=== PATIENT | female | born 1990 | race Caucasian/White ===

== ENCOUNTER 2016-12-22 10:14 | Outpatient (CLI) | payer MEDICAID | END 2016-12-22 13:35 | disposition home or self-care (01) | LOC: MW.OBCHECK 10:14 → MW.OB 10:17 → MW.OBCHECK 13:35 | PROVIDERS: ATTEND Obstetrics & Gynecology | DX: O47.1 False labor at or after 37 completed weeks of gestation (principal) | CPT/HCPCS: 59025; 81003 ==

== ENCOUNTER 2017-05-14 07:03 | Emergency (ER) | payer MEDICAID ==
[2017-05-14 07:28] VITALS: BP 127/79
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
== END 2017-05-14 07:56 | disposition home or self-care (01) ==
LOC: MW.ED 07:03
DX: M79.641 Pain in right hand (principal); R20.9 Unspecified disturbances of skin sensation; F41.9 Anxiety disorder, unspecified; F17.210 Nicotine dependence, cigarettes, uncomplicated; F32.9 Major depressive disorder, single episode, unspecified; Z90.49 Acquired absence of other specified parts of digestive tract; Z98.890 Other specified postprocedural states; Z88.0 Allergy status to penicillin
CPT/HCPCS: 99282

== ENCOUNTER 2017-05-31 20:00 | Emergency (ER) | payer MEDICAID ==
[2017-05-31] MEDS ORDERED: Diphtheria,Pertussis(Acell),Tetanus Vaccine 0.5 ML Syringe IM ONE (20:11)
[2017-05-31] MEDS ORDERED: LORazepam 1 MG Tab PO ONE (20:11)
[2017-05-31] MEDS ORDERED: Bacitracin Oint 1 GM U/D Packet TOP ONE (20:15)
[2017-05-31] MEDS ORDERED: Lidocaine 1% 20 ML MDV INJECT ONE (20:15)
--- NOTE | 2017-05-31 20:20 | EDM.PDOCBH ---
ED HPI GENERAL MEDICAL PROBLEM - General Chief Complaint: Behavioral/Psych Stated Complaint: BEHAVIORAL ISSUES Time Seen by Provider: 05/31/17 20:12 Source of Information: Reports: Patient, RN - History of Present Illness INITIAL COMMENTS - FREE TEXT/NARRATIVE: She lost her anti depressants about three weeks ago. Now , tonight she cut her wrist with a box knife. She states that she is not sure if she was trying to kill herself. Although she did tell the nurse that she wanted to kill herself. 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; she admits to marijuana use but none within the past 24 hours; no other illegal drug use Right Wrist Pain Score (Numeric/FACES): 3 - Related Data Allergies Allergy/AdvReac Type Severity Reaction Status Date / Time Penicillins Allergy Anaphylactic Verified 05/31/17 20:01 Shock Home Meds: Home Meds Citalopram [Celexa] 30 mg PO BEDTIME 05/14/17 [History] LORazepam PRN 05/14/17 [History] Methylphenidate HCl [Methylphenidate ER] 1 tab PO DAILY 05/14/17 [History] Multivitamins [Tab-A-Heather] 1 tab PO DAILY 05/14/17 [History] Past Medical History Psychiatric History: Reports: Anxiety, Depression - Infectious Disease History Infectious Disease History: Reports: Chicken Pox, Influenza - Past Surgical History HEENT Surgical History: Reports: Adenoidectomy, Tonsillectomy GI Surgical History: Reports: Appendectomy Social & Family History - Tobacco Use Smoking Status *Q: Current Every Day Smoker Years of Tobacco use: 13 Packs/Tins Daily: 1 Used Tobacco, but Quit: Yes Month Tobacco Last Used: february Second Hand Smoke Exposure: No - Caffeine Use Caffeine Use: Reports: Coffee Other Caffeine Use: 1 cup daily - Alcohol Use Days Per Week of Alcohol Use: 3 Number of Drinks Per Day: 3 Total Drinks Per Week: 9 - Recreational Drug Use Recreational Drug Use: No Drug Use in Last 12 Months: Yes Recreational Drug Type: Reports: Marijuana/Hashish Recreational Drug Use Frequency: Not Used In Over 6 Months Recreational Drug Last Use: april ED ROS GENERAL - Review of Systems Review Of Systems: See Below Constitutional: Denies: Fever, Chills Respiratory: Denies: Shortness of Breath, Cough, Sputum, Hemoptysis Cardiovascular: Denies: Chest Pain GI/Abdominal: Denies: Abdominal Pain ED EXAM, BEHAVIORAL HEALTH - Physical Exam Exam: See Below General Appearance: Alert, Other (crying; cooperative; appears depressed. She denies any hallucinations.) Throat/Mouth: Normal Lips Neck: Supple, Other (no thyromegaly) Respiratory/Chest: No Respiratory Distress, Lungs Clear, Normal Breath Sounds Cardiovascular: Regular Rate, Rhythm, No Edema GI/Abdominal: Non-Tender Neurological: Alert. No: Disoriented to Person, Disoriented to Place, Inattentive, Dysarthria, Facial Palsy (R), Facial Palsy (L) Psychiatric: Depressed Mood, Tearful. No: Agitated COURSE, BEHAVIORAL HEALTH COMP - Course Vital Signs: Last Vital Signs Temp 97.8 F 05/31/17 20:01 Pulse 109 H 05/31/17 20:01 Resp 16 05/31/17 20:01 BP 98/58 L 05/31/17 20:01 Pulse Ox 98 05/31/17 20:01 Orders, Labs, Meds: Active Orders 24 hr Category Date Time Status EKG Documentation Completion [RC] STAT Care 05/31/17 20:33 Active Vaccines to be Administered [RC] PER UNIT ROUTINE Care 05/31/17 20:11 Active COMPREHENSIVE METABOLIC PN,CMP [CHEM] Stat Lab 05/31/17 20:41 Received DRUG SCREEN, URINE [URCHEM] Stat Lab 05/31/17 20:31 Uncollected HCG QUALITATIVE,SERUM [CHEM] Stat Lab 05/31/17 20:41 Received MAGNESIUM [CHEM] Stat Lab 05/31/17 20:41 Received TSH [CHEM] Stat Lab 05/31/17 20:41 Received UA W/MICROSCOPIC [URIN] Stat Lab 05/31/17 20:31 Uncollected Laboratory Tests 05/31/17 Range/Units 20:41 WBC 12.08 H (4.0-11.0) K/uL RBC 4.39 (4.30-5.90) M/uL Hgb 13.2 (12.0-16.0) g/dL Hct 38.9 (36.0-46.0) % MCV 88.6 (80.0-98.0) fL MCH 30.1 (27.0-32.0) pg MCHC 33.9 (31.0-37.0) g/dL RDW Std Deviation 43.4 (28.0-62.0) fl RDW Coeff of Xochilt 13 (11.0-15.0) % Plt Count 329 (150-400) K/uL MPV 8.50 (7.40-12.00) fL Neut % (Auto) 66.7 (48.0-80.0) % Lymph % (Auto) 27.6 (16.0-40.0) % [place] % (Auto) 3.6 (0.0-15.0) % Eos % (Auto) 1.7 (0.0-7.0) % Baso % (Auto) 0.4 (0.0-1.5) % Neut # (Auto) 8.0 H (1.4-5.7) K/uL Lymph # (Auto) 3.3 H (0.6-2.4) K/uL [place] # (Auto) 0.4 (0.0-0.8) K/uL Eos # (Auto) 0.2 (0.0-0.7) K/uL Baso # (Auto) 0.1 (0.0-0.1) K/uL Nucleated RBC % 0.0 /100WBC Nucleated RBCs # 0 K/uL Medications Discontinued Medications Generic Name Dose Route Start Last Admin Trade Name Freq PRN Reason Stop Dose Admin Bacitracin 1 dose 05/31/17 20:15 05/31/17 20:57 Bacitracin Oint 1 Gm TOP 05/31/17 20:16 1 dose ONETIME ONE Administration Diphtheria/Tetanus/Acell Pertussis 0.5 ml 05/31/17 20:11 05/31/17 20:57 Adacel IM 05/31/17 20:12 0.5 ml .ONCE ONE Administration Lidocaine HCl 20 ml 05/31/17 20:15 05/31/17 20:57 Xylocaine 1% INJECT 05/31/17 20:16 20 ml ONETIME ONE Administration Lorazepam 1 mg 05/31/17 20:11 05/31/17 20:58 Ativan PO 05/31/17 20:12 1 mg ONETIME ONE Administration Departure - Departure Time of Disposition: 20:56 Disposition: DC/Tfer to Acute Hospital 02 Condition: Fair Clinical Impression: Laceration, Suicidal ideation, Depression - Discharge Information Referrals: PCP,None [Primary Care Provider] - Forms: ED Department Discharge Additional Instructions: I spoke with Dr Elina Mejía and with Dr Pereyra, psychiatry, [facility] accept [facility] transfer. - My Orders Last 24 Hours: My Active Orders 05/31/17 20:11 Vaccines to be Administered [RC] PER UNIT ROUTINE 05/31/17 20:31 DRUG SCREEN, URINE [URCHEM] Stat UA W/MICROSCOPIC [URIN] Stat 05/31/17 20:33 EKG Documentation Completion [RC] STAT 05/31/17 20:41 COMPREHENSIVE METABOLIC PN,CMP [CHEM] Stat HCG QUALITATIVE,SERUM [CHEM] Stat MAGNESIUM [CHEM] Stat TSH [CHEM] Stat - Assessment/Plan Last 24 Hours: My Active Orders 05/31/17 20:11 Vaccines to be Administered [RC] PER UNIT ROUTINE 05/31/17 20:31 DRUG SCREEN, URINE [URCHEM] Stat UA W/MICROSCOPIC [URIN] Stat 05/31/17 20:33 EKG Documentation Completion [RC] STAT 05/31/17 20:41 COMPREHENSIVE METABOLIC PN,CMP [CHEM] Stat HCG QUALITATIVE,SERUM [CHEM] Stat MAGNESIUM [CHEM] Stat TSH [CHEM] Stat
[2017-05-31] MEDS ORDERED: LORazepam 1 MG Tab ONE (20:59)
[2017-05-31 21:08] LABS: CHLORIDE,CL 108 mmol/L (98-110); SODIUM,NA 145 mmol/L (136-146)
[2017-05-31 22:49] VITALS: BP 134/62
== END 2017-05-31 22:13 ==
LOC: MW.ED 20:00
DX: S61.511A Laceration without foreign body of right wrist, initial encounter (principal); F32.9 Major depressive disorder, single episode, unspecified; F17.210 Nicotine dependence, cigarettes, uncomplicated; Z23 Encounter for immunization; Z88.0 Allergy status to penicillin; Z98.890 Other specified postprocedural states; Z90.49 Acquired absence of other specified parts of digestive tract; X78.8XXA Intentional self-harm by other sharp object, initial encounter
CPT/HCPCS: 12001; 36415; 80053; 80305; 81001; 83735; 84443; 84703; 85025; 90471; 90715; 93005; 99285; A9270; 99282

== ENCOUNTER 2017-07-25 08:13 | Day surgery (SDC) | payer MEDICAID ==
[~2017-07-25 08:13] MED LIST: Acetaminophen/HYDROcodone 325-5 MG Tab PO PRN; Bupivacaine 0.25% 10 ML SDV INJECT ONE; Bupivacaine 0.25% 10 ML SDV ONE; Clindamycin Phosphate in D5W 600 MG in Premix Bag 1 BAG IV ONE; Lactated Ringers 1,000 ML IV SCH; Lidocaine 2% 5 ML SDV ONE; Midazolam 1 MG/ML 2 ML SDV ONE; Propofol 200 MG/20 ML SDV ONE; fentaNYL 100 MCG/2 ML SDV ONE
--- NOTE | 2017-07-25 08:31 | PCM.PREANE ---
Preanesthetic Assessment - Anesthesia/Transfusion/Family Hx Anesthesia History: Prior Anesthesia Without Reaction Other Type of Anesthesia Reaction Comment: "I wake up weepy" Family History of Anesthesia Reaction: No Transfusion History: No Prior Transfusion(s) Intubation History: Unknown - Review of Systems General: No Symptoms Pulmonary: No Symptoms Gastrointestinal: No Symptoms Neurological: No Symptoms Other: Reports: None - Physical Assessment Height: 1.68 m Weight: 48.988 kg ASA Class: 2 Mental Status: Alert & Oriented x3 Airway Class: Mallampati = 1 Dentition: Reports: Normal Dentition Thyro-Mental Finger Breadths: 3 Mouth Opening Finger Breadths: 3 ROM/Head Extension: Full Lungs: Clear to Auscultation, Normal Respiratory Effort Cardiovascular: Regular Rate, Regular Rhythm - Allergies Allergies/Adverse Reactions: Allergies Allergy/AdvReac Type Severity Reaction Status Date / Time Penicillins Allergy Anaphylactic Verified 05/31/17 20:01 Shock - Blood Blood Available: No - Anesthesia Plan Pre-Op Medication Ordered: None - Acknowledgements Anesthesia Type Planned: MAC Pt an Appropriate Candidate for the Planned Anesthesia: Yes Alternatives and Risks of Anesthesia Discussed w Pt/Guardian: Yes Pt/Guardian Understands and Agrees with Anesthesia Plan: Yes PreAnesthesia Questionnaire HEENT History: Reports: Impaired Vision Other HEENT History: wears glasses Cardiovascular History: Reports: None Respiratory History: Reports: None Gastrointestinal History: Reports: Helicobacter Pylori Genitourinary History: Reports: None 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: Musculoskeletal History: Reports: Fracture Other Musculoskeletal History: fx ankle, fx nose Neurological History: Reports: Concussion Psychiatric History: Reports: Anxiety, Depression Endocrine/Metabolic History: Reports: None Dermatologic History: Reports: None - Infectious Disease History Infectious Disease History: Reports: Chicken Pox, Influenza - Past Surgical History Head Surgeries/Procedures: Reports: None HEENT Surgical History: Reports: Adenoidectomy, Oral Surgery, Tonsillectomy, Other (See Below) Other HEENT Surgeries/Procedures: rhinoplasty, wisdom teeth extraction, nasal reduction Cardiovascular Surgical History: Reports: None GI Surgical History: Reports: Appendectomy Female Surgical History: Reports: Other (See Below) Other Female Surgeries/Procedures: liposuction Musculoskeletal Surgical History: Reports: Carpal Tunnel - SUBSTANCE USE Smoking Status *Q: Current Some Day Smoker (< 1ppd) Tobacco Use Within Last Twelve Months: Cigarettes Second Hand Smoke Exposure: No Days Per Week of Alcohol Use: 3 Number of Drinks Per Day: 3 Total Drinks Per Week: 9 Recreational Drug Use History: Yes Recreational Drug Type: Reports: Marijuana/Hashish Recreational Drug Last Use: jul, - HOME MEDS Home Medications: Home Meds ARIPiprazole [Abilify] 5 mg PO DAILY 07/20/17 [History] Multivitamin [Multivitamins] 1 tab PO DAILY 07/20/17 [History] cloNIDine HCl [Catapres] 0.1 mg PO DAILY 07/20/17 [History] - CURRENT (IN HOUSE) MEDS Current Meds: Current Medications Hydrocodone Bitart/Acetaminophen (Sandy 325-5 Mg) 1 tab PO Q4H PRN PRN Reason: Pain Lactated Ringer's (Ringers, Lactated) 1,000 mls @ 125 mls/hr IV ASDIRECTED BINH Discontinued Medications Bupivacaine HCl (Sensorcaine-Mpf 0.25%) 10 ml INJECT ONETIME ONE Stop: 07/25/17 08:01 Bupivacaine HCl (Sensorcaine-Mpf 0.25%) Confirm Administered Dose 10 ml .ROUTE .STK-MED ONE Stop: 07/25/17 07:39 Fentanyl (Sublimaze) Confirm Administered Dose 100 mcg .ROUTE .STK-MED ONE Stop: 07/25/17 07:01 Clindamycin Phosphate 600 mg/ (Premix) 50 mls @ 150 mls/hr IV ONETIME ONE Stop: 07/25/17 08:19 Lidocaine (Xylocaine-Mpf 2%) Confirm Administered Dose 5 ml .ROUTE .STK-MED ONE Stop: 07/25/17 07:01 Midazolam HCl (Versed 1 Mg/Ml) Confirm Administered Dose 2 mg .ROUTE .STK-MED ONE Stop: 07/25/17 07:01 Propofol (Diprivan 20 Ml) Confirm Administered Dose 200 mg .ROUTE .STK-MED ONE Stop: 07/25/17 07:01
[2017-07-25 10:53] VITALS: BP 91/56
--- NOTE | 2017-07-26 09:42 | PCM.OPNOTE ---
- General Post-Op/Procedure Note Date of Surgery/Procedure: 07/25/17 Operative Procedure(s): right carpal tunnel release Pre Op Diagnosis: right carpal tunnel Post-Op Diagnosis: Same Anesthesia Technique: Local, MAC Primary Surgeon: Cornelia Dorado Video Machines Mechanic: Ruthie Parada Complications: None Condition: Good
--- NOTE | 2017-07-31 21:06 | OR ---
SURGEON: KONRAD DIEGO MD DATE OF PROCEDURE: 07/25/2017 PREOPERATIVE DIAGNOSIS: Right carpal tunnel syndrome. POSTOPERATIVE DIAGNOSIS: Right carpal tunnel syndrome. PROCEDURES: Right carpal tunnel release. DRY PAN CHARGER: SAIRA Mercado. ANESTHESIA: Local MAC. INDICATIONS: Ms. Hendrickson is a 27-year-old female with carpal tunnel syndrome on the right. Risks and benefits of release were discussed with her and she was in agreement to proceed. Risks were including, but not limited to, bleeding, infection, damage to underlying or overlying structures, possible need for future interventions, possible scarring. PROCEDURE IN DETAIL: After informed consent was obtained, placed on the chart, the patient was brought to the operating theater in the supine position. After adequate local MAC anesthetic was obtained the area was prepped and draped and a time-out was completed to confirm side and site. Once completed, attention was then paid to dissection of the right carpal tunnel. The arm was exsanguinated and the tourniquet was insufflated to 200 mmHg. A 15 blade was used to dissect through the skin, subcutaneous tissues until release of ligament. The dissection was carried distally and proximally under direct visualization until complete release of the ligament. The wound was irrigated and closed using 5-0 nylon stitches in a horizontal mattress fashion. The wound was then dressed with Xeroform fluffs and a Kerlix gauze dressing. A 2-inch Eron wrap on top of this. The patient tolerated the procedure well and all counts needles were correct at the end the case. FOLLOWUP INSTRUCTIONS: The patient will see us in 10 to 14 days sooner if any problems, questions, or concerns. She was given a prescription for pain control. SOCRATESGGTSOCRATES / SOLO /[id number]
== END 2017-07-25 10:10 | disposition home or self-care (01) ==
LOC: MW.SDS 08:13
PROVIDERS: ATTEND Plastic Surgery
DX: G56.01 Carpal tunnel syndrome, right upper limb (principal); Z88.0 Allergy status to penicillin; Z79.899 Other long term (current) drug therapy; Z90.49 Acquired absence of other specified parts of digestive tract; Z98.890 Other specified postprocedural states; F17.210 Nicotine dependence, cigarettes, uncomplicated
CPT/HCPCS: 64721; 81025; J2250; J3010; J7120; 01810; J2704

== ENCOUNTER 2018-11-01 06:20 | Day surgery (SDC) | payer OTHER ==
--- NOTE | 2018-11-01 07:12 | PCM.PREANE ---
Preanesthetic Assessment - Anesthesia/Transfusion/Family Hx Anesthesia History: Prior Anesthesia Without Reaction (oral surgery, T+A, nose, teeth, appy, liposuction: Wakes up "weepy", sometimes nauseated. Otherwise no anesthesia issues. Had carpal tunnel done here aboutr a year ago without any problems--felt fine afterwards.) Other Type of Anesthesia Reaction Comment: "I wake up weepy" Family History of Anesthesia Reaction: No Transfusion History: No Prior Transfusion(s) Intubation History: Unknown - Review of Systems General: No Symptoms Pulmonary: No Symptoms (smoker and MJ) Cardiovascular: No Symptoms Gastrointestinal: No Symptoms (+ H. Pylori) Neurological: No Symptoms (depression/anxiety for which she takes ADDERALL and ABILIFY. History of concussion. Legally blind) Other: Reports: None (+ETOH, hx ankle and nose fractures,) - Physical Assessment NPO Status Date: 11/01/18 NPO Status Time: 00:00 Pulse: 77 O2 Sat by Pulse Oximetry: 100 Respiratory Rate: 18 Blood Pressure: 126/77 Temperature: 36.4 C Height: 1.68 m Weight: 56.699 kg ASA Class: 2 Mental Status: Alert & Oriented x3 Airway Class: Mallampati = 1 Dentition: Reports: Normal Dentition Thyro-Mental Finger Breadths: 2 Mouth Opening Finger Breadths: 4 ROM/Head Extension: Full Lungs: Clear to Auscultation, Normal Respiratory Effort Cardiovascular: Regular Rate, Regular Rhythm, No Murmurs - Allergies Allergies/Adverse Reactions: Allergies Allergy/AdvReac Type Severity Reaction Status Date / Time Penicillins Allergy Anaphylactic Verified 10/31/18 09:52 Shock - Blood Blood Available: No Product(s) Available: None - Anesthesia Plan Pre-Op Medication Ordered: None - Acknowledgements Anesthesia Type Planned: MAC (Plan: MAC. Discussed with patient and . All questions answered. Patient says MAC worked very well last year for carpal tunnel on other side. Consent signed.) Pt an Appropriate Candidate for the Planned Anesthesia: Yes Alternatives and Risks of Anesthesia Discussed w Pt/Guardian: Yes Pt/Guardian Understands and Agrees with Anesthesia Plan: Yes PreAnesthesia Questionnaire HEENT History: Reports: Impaired Vision, Other (See Below) Other HEENT History: legally blind without corrective lenses- wears glasses/ contacts Cardiovascular History: Reports: None Respiratory History: Reports: None Gastrointestinal History: Reports: None Genitourinary History: Reports: None STAND UP COMEDIAN History: Reports: Musculoskeletal History: Reports: Fracture Other Musculoskeletal History: hx of bilateral fx ankles Neurological History: Reports: Concussion Psychiatric History: Reports: Anxiety, Depression, PTSD Endocrine/Metabolic History: Reports: None Dermatologic History: Reports: None - Infectious Disease History Infectious Disease History: Reports: Chicken Pox, MRSA - Past Surgical History HEENT Surgical History: Reports: Naso-Sinus Surgery, Tonsillectomy Other HEENT Surgeries/Procedures: hx of Rhinoplasty GI Surgical History: Reports: Appendectomy, Other (See Below) Other GI Surgeries/Procedures: hx of Liposuction - SUBSTANCE USE Smoking Status *Q: Current Every Day Smoker Tobacco Use Within Last Twelve Months: Cigarettes Recreational Drug Use History: No - HOME MEDS Home Medications: Home Meds ARIPiprazole [Abilify] 10 mg PO BEDTIME 07/20/17 [History] cloNIDine HCl [Catapres] 0.1 mg PO BEDTIME 07/20/17 [History] Sertraline [Zoloft] 25 mg PO DAILY 09/02/18 [History] Dextroamphetamine/Amphetamine [Adderall] 30 mg PO BID 10/31/18 [History] - CURRENT (IN HOUSE) MEDS Current Meds: Current Medications Hydrocodone Bitart/Acetaminophen (Damar 325-5 Mg) 1 tab PO Q4H PRN PRN Reason: Pain Bupivacaine HCl/Epinephrine Bitart (Marcaine 0.25%/Epinephrine 1:200,000) 10 ml INJECT ONETIME ONE Stop: 11/01/18 08:01 Clindamycin Phosphate 600 mg/ (Premix) 50 mls @ 150 mls/hr IV ONETIME ONE Stop: 11/01/18 08:19 Lactated Ringer's (Ringers, Lactated) 1,000 mls @ 125 mls/hr IV ASDIRECTED BINH
[2018-11-01] MEDS ORDERED: fentaNYL 100 MCG/2 ML SDV ONE (07:13)
[2018-11-01] MEDS ORDERED: Propofol 200 MG/20 ML SDV ONE (07:13)
[2018-11-01] MEDS ORDERED: Midazolam 1 MG/ML 2 ML SDV ONE (07:14)
[2018-11-01] MEDS ORDERED: Bupivacaine 0.25%/EPINEPHrine 1:200,000 10 ML SDV ONE (07:19)
[2018-11-01] MEDS ORDERED: Clindamycin Phosphate in D5W 600 MG in Premix Bag 1 BAG IV ONE ×2 (08:00)
[2018-11-01] MEDS ORDERED: Acetaminophen/HYDROcodone 325-5 MG Tab PO PRN (08:00)
[2018-11-01] MEDS ORDERED: Lactated Ringers 1,000 ML IV SCH (08:00)
[2018-11-01] MEDS ORDERED: Bupivacaine 0.25%/EPINEPHrine 1:200,000 10 ML SDV INJECT ONE (08:00)
[2018-11-01 09:10] VITALS: BP 126/77
--- NOTE | 2018-11-01 09:10 | PCM48HPAN ---
Post Anesthesia Note - EVALUATION WITHIN 48HRS OF ANESTHETIC Vital Signs in Normal Range: Yes Patient Participated in Evaluation: Yes Respiratory Function Stable: Yes Airway Patent: Yes Cardiovascular Function Stable: Yes Hydration Status Stable: Yes Pain Control Satisfactory: Yes Nausea and Vomiting Control Satisfactory: Yes Mental Status Recovered: Yes Pulse Rate: 77 Resp Rate: 16 Temperature: 36.4 C Blood Pressure: 126/77 - COMMENTS/OBSERVATIONS Free Text/Narrative:: no anesthesia problems
--- NOTE | 2018-11-04 08:24 | PCM.OPNOTE ---
- General Post-Op/Procedure Note Date of Surgery/Procedure: 11/01/18 Operative Procedure(s): left carpal tunnel release Pre Op Diagnosis: left carpal tunnel Post-Op Diagnosis: Same Anesthesia Technique: Local, MAC Primary Surgeon: Cornelia Dorado Prosthodontist: Ruthie Parada Complications: None Condition: Good Free Text/Narrative:: [id number]
--- NOTE | 2018-11-04 13:52 | OR ---
SURGEON: KONRAD DIEGO MD DATE OF PROCEDURE: 11/01/2018 PREOPERATIAVE DIAGNOSIS: Left carpal tunnel syndrome. POSTOPERATIVE DIAGNOSIS: Left carpal tunnel syndrome. PROCEDURES: Left carpal tunnel release. ADVERTISING SALES AGENT: SAIRA Mercado. REASON FOR AND ROLE OF ADVERTISING SALES AGENT: Retraction, prepping, draping, positioning and closure assistance. ANESTHESIA: Local MAC. INDICATIONS: Ms. Hurley is a 28-year-old female, seen today in evaluation for left carpal tunnel release. Risks and benefits were discussed. Risks were including, but not limited to, bleeding, infection, damage to underlying or overlying structures, possible need for future interventions, and possible scarring. She has failed conservative management and has documented carpal tunnel and would like release. All questions answered and informed consent was obtained. PROCEDURE IN DETAIL: After informed consent was obtained and placed on the chart, the patient was brought to the operating theater and laid in supine position. After adequate local MAC anesthesia was obtained, the area was prepped and draped and a time- out was completed to confirm side and site. The arm was exsanguinated and tourniquet was insufflated to 200 mmHg after adequate local injection. Once adequately injected, attention was then paid to dissection of the transverse carpal ligament. The ligament was dissected using a #15 blade through the skin until breach of the ligament. Once adequately breached, attention was then paid to dissection distally and proximally under direct visualization. Once visualized, the wound was irrigated and the skin closed with a 5-0 nylon in a horizontal mattress fashion. The wound was dressed with Xeroform fluffs and a Kerlix gauze dressing. The patient tolerated this well. All counts of needles were correct at the end of the case. FOLLOWUP INSTRUCTIONS: The patient will see us in clinic in 10 to 14 days, sooner if any problems, questions, or concerns. HEGGTHE / MODL /[id number]
== END 2018-11-01 09:15 | disposition home or self-care (01) ==
LOC: MW.SDS 06:20
PROVIDERS: ATTEND Plastic Surgery
DX: G56.02 Carpal tunnel syndrome, left upper limb (principal); F17.210 Nicotine dependence, cigarettes, uncomplicated; F43.10 Post-traumatic stress disorder, unspecified; Z88.0 Allergy status to penicillin; Z79.899 Other long term (current) drug therapy
CPT/HCPCS: 64721; 81025; J2250; J2704; J3010; J3490; J7120

== ENCOUNTER 2020-04-21 11:19 | Emergency (ER) | payer OTHER ==
--- NOTE | 2020-04-21 11:28 | EDM.PDOC ---
ED HPI GENERAL MEDICAL PROBLEM - General Stated Complaint: VOMITING Time Seen by Provider: 04/21/20 11:21 Source of Information: Reports: Patient History Limitations: Reports: No Limitations - History of Present Illness INITIAL COMMENTS - FREE TEXT/NARRATIVE: HISTORY AND PHYSICAL: History of present illness: Patient is a 30-year-old female who presents to the emergency room with complaints of nausea and vomiting since yesterday. She states she has been struggling with alcohol abuse on and off for several years. Over the past 2 days she has been drinking vodka heavily and decided she wanted to abstain from it. Her last drink was 9pm last evening. Previously she had been on Antabuse, prescribed by a provider in [place] - but hasn't taken in "awhile". Patient denies any fever, chills, headache, change in vision, syncope or near syncope. Denies any chest pain, back pain, shortness of breath or cough. Denies any abdominal pain, nausea, vomiting, diarrhea, constipation or dysuria. Has not noted any blood in urine or stool. Patient has been eating and drinking appropriately. Review of systems: As per history of present illness and below otherwise all systems reviewed and negative. Past medical history: As per history of present illness and as reviewed below otherwise noncontributory. Surgical history: As per history of present illness and as reviewed below otherwise noncontrib utory. Social history: See social history for further information Family history: As per history of present illness and as reviewed below otherwise noncontributory. Physical exam: General: Well developed and well nourished 30 year old female. Alert and orientated, nontoxic appearing and in no acute distress. VSS and have been reviewed by me. HEENT: Atraumatic, normocephalic, pupils equal and reactive bilaterally, negative for conjunctival pallor or scleral icterus, mucous membranes moist, TMs normal bilaterally, throat clear, neck supple, nontender, trachea midline. No drooling or trismus noted. No meningeal signs. No hot potato voice noted. Lungs: Clear to auscultation, breath sounds equal bilaterally, chest nontender. Heart: S1S2, regular rate and rhythm without overt murmur Abdomen: Soft, nondistended, nontender. Negative for masses or hepatosplenomegaly. Negative for costovertebral tenderness. Skin: Intact, warm, dry. No lesions or rashes noted. Extremities: Atraumatic, moves all extremities per self without difficulty or deficits, negative for cords or calf pain. Neurovascular unremarkable. Neuro: Awake, alert, oriented. Cranial nerves II through XII unremarkable. Cereb ellum unremarkable. Motor and sensory unremarkable throughout. Exam nonfocal. Notes: Patient reports her last drink was last evening. She has no obvious tremors; CIWA 4 (Anxious and N/V). Will do some basic lab work and give Ativan and fluids. She states she does not currently desire any inpatient or outpatient treatment. Patient states she feels improved after the IV fluids and medication. Her vital signs remained stable. We did discuss the leukocytosis and she states she has no source or concern of infection, denies any cough/shortness of breath, abdominal pain, dysuria etc.. We discussed signs and symptoms that would prompt her to return to the emergency room. The need for follow-up and supportive care measures were reviewed and discussed. Voices understanding and is agreeable to plan of care. Denies any further questions or concerns at this time. Diagnostics: CBC, CMP, UA, HCGU, Lipase Therapeutics: IV fluids, Ativan Prescription: None Impression: Leukocytosis Nausea and vomiting Plan: 1. Your lab work was within normal limits with the exception of a slightly elevated white count (WBC). You currently do not have any source of infection, so this is likely from you wrenching/vomiting. If you should develop a fever, cough, abdominal pain, etc... you should be re-evalutated. 2. Encourage small frequent sips of fluids to prevent dehydration. Pender diet over the next 24-48 hours, advance as tolerated. 3. Tylenol and/or Ibuprofen as needed for pain and fever management. 4. Follow up with your primary care provider or the general surgeon as we discussed. Definitive disposition and diagnosis as appropriate pending reevaluation and review of above. - Related Data Allergies Allergy/AdvReac Type Severity Reaction Status Date / Time Penicillins Allergy Anaphylactic Verified 04/21/20 11:51 Shock Home Meds: Home Meds . [No Known Home Meds] 04/21/20 [History] Past Medical History HEENT History: Reports: Impaired Vision, Other (See Below) Other HEENT History: legally blind without corrective lenses- wears glass es/contacts Cardiovascular History: Reports: None Respiratory History: Reports: None Gastrointestinal History: Reports: None Genitourinary History: Reports: None FISHER POT History: Reports: Musculoskeletal History: Reports: Fracture Other Musculoskeletal History: hx of bilateral fx ankles Neurological History: Reports: Concussion Psychiatric History: Reports: Anxiety, Depression, PTSD Endocrine/Metabolic History: Reports: None Dermatologic History: Reports: None - Infectious Disease History Infectious Disease History: Reports: Chicken Pox, MRSA - Past Surgical History HEENT Surgical History: Reports: Naso-Sinus Surgery, Tonsillectomy Other HEENT Surgeries/Procedures: hx of Rhinoplasty GI Surgical History: Reports: Appendectomy, Other (See Below) Other GI Surgeries/Procedures: hx of Liposuction Social & Family History - Caffeine Use Caffeine Use: Reports: Coffee Other Caffeine Use: 1 cup daily ED ROS GENERAL - Review of Systems Review Of Systems: Comprehensive ROS is negative, except as noted in HPI. ED EXAM, GI/ABD - Physical Exam Exam: See Below (See dictation) Course - Vital Signs Last Recorded V/S: Last Vital Signs Temp 98.4 F 04/21/20 11:52 Pulse 80 04/21/20 12:21 Resp 15 04/21/20 12:21 BP 116/76 04/21/20 12:21 Pulse Ox 98 04/21/20 12:21 - Orders/Labs/Meds Labs: Laboratory Tests 04/21/20 04/21/20 04/21/20 Range/Units 11:32 11:32 11:32 WBC 16.90 H (4.0-11.0) K/uL RBC 4.71 (4.30-5.90) M/uL Hgb 14.4 (12.0-16.0) g/dL Hct 42.0 (36.0-46.0) % MCV 89.2 (80.0-98.0) fL MCH 30.6 (27.0-32.0) pg MCHC 34.3 (31.0-37.0) g/dL RDW Std Deviation 41.3 (28.0-62.0) fl RDW Coeff of Xochilt 13 (11.0-15.0) % Plt Count 529 H (150-400) K/uL MPV 8.70 (7.40-12.00) fL Neut % (Auto) 81.7 H (48.0-80.0) % Lymph % (Auto) 13.8 L (16.0-40.0) % [place] % (Auto) 4.3 (0.0-15.0) % Eos % (Auto) 0.0 (0.0-7.0) % Baso % (Auto) 0.2 (0.0-1.5) % Neut # (Auto) 13.8 H (1.4-5.7) K/uL Lymph # (Auto) 2.3 (0.6-2.4) K/uL [place] # (Auto) 0.7 (0.0-0.8) K/uL Eos # (Auto) 0.0 (0.0-0.7) K/uL Baso # (Auto) 0.0 (0.0-0.1) K/uL Nucleated RBC % 0.0 /100WBC Nucleated RBCs # 0 K/uL Sodium 140 (136-145) mmol/L Potassium 3.4 L (3.5-5.1) mmol/L Chloride 100 (98-107) mmol/L Carbon Dioxide 19.1 L (21.0-32.0) mmol/L BUN 15 (7.0-18.0) mg/dL Creatinine 0.8 (0.6-1.0) mg/dL Est Cr Clr Drug Dosing 86.75 mL/min Estimated GFR (MDRD) > 60.0 ml/min Glucose 87 (74-106) mg/dL Calcium 9.4 (8.5-10.1) mg/dL Total Bilirubin 0.9 (0.2-1.0) mg/dL AST 23 (15-37) IU/L ALT 16 (14-63) IU/L Alkaline Phosphatase 52 (46-116) U/L Total Protein 8.3 H (6.4-8.2) g/dL Albumin 4.7 (3.4-5.0) g/dL Globulin 3.6 (2.6-4.0) g/dL Albumin/Globulin Ratio 1.3 (0.9-1.6) Lipase 41 L (73-393) U/L Urine Color Urine Appearance Urine pH (5.0-8.0) Ur Specific [place] (1.001-1.035) Urine Protein (NEGATIVE) mg/dL Urine Glucose (UA) (NEGATIVE) mg/dL Urine Ketones (NEGATIVE) mg/dL Urine Occult Blood (NEGATIVE) Urine Nitrite (NEGATIVE) Urine Bilirubin (NEGATIVE) Urine Urobilinogen (<2.0) EU/dL Ur Leukocyte Esterase (NEGATIVE) Urine RBC (0-2/HPF) Urine WBC (0-5/HPF) Ur Epithelial Cells (NONE-FEW) Urine Bacteria (NEGATIVE) Urine HCG, Qual (NEGATIVE) Ethyl Alcohol 23 mg/dL 04/21/20 04/21/20 Range/Units 13:05 13:05 WBC (4.0-11.0) K/uL RBC (4.30-5.90) M/uL Hgb (12.0-16.0) g/dL Hct (36.0-46.0) % MCV (80.0-98.0) fL MCH (27.0-32.0) pg MCHC (31.0-37.0) g/dL RDW Std Deviation (28.0-62.0) fl RDW Coeff of Xochilt (11.0-15.0) % Plt Count (150-400) K/uL MPV (7.40-12.00) fL Neut % (Auto) (48.0-80.0) % Lymph % (Auto) (16.0-40.0) % [place] % (Auto) (0.0-15.0) % Eos % (Auto) (0.0-7.0) % Baso % (Auto) (0.0-1.5) % Neut # (Auto) (1.4-5.7) K/uL Lymph # (Auto) (0.6-2.4) K/uL [place] # (Auto) (0.0-0.8) K/uL Eos # (Auto) (0.0-0.7) K/uL Baso # (Auto) (0.0-0.1) K/uL Nucleated RBC % /100WBC Nucleated RBCs # K/uL Sodium (136-145) mmol/L Potassium (3.5-5.1) mmol/L Chloride (98-107) mmol/L Carbon Dioxide (21.0-32.0) mmol/L BUN (7.0-18.0) mg/dL Creatinine (0.6-1.0) mg/dL Est Cr Clr Drug Dosing mL/min Estimated GFR (MDRD) ml/min Glucose (74-106) mg/dL Calcium (8.5-10.1) mg/dL Total Bilirubin (0.2-1.0) mg/dL AST (15-37) IU/L ALT (14-63) IU/L Alkaline Phosphatase (46-116) U/L Total Protein (6.4-8.2) g/dL Albumin (3.4-5.0) g/dL Globulin (2.6-4.0) g/dL Albumin/Globulin Ratio (0.9-1.6) Lipase (73-393) U/L Urine Color YELLOW Urine Appearance CLEAR Urine pH 6.5 (5.0-8.0) Ur Specific [place] >= 1.030 (1.001-1.035) Urine Protein TRACE H (NEGATIVE) mg/dL Urine Glucose (UA) NEGATIVE (NEGATIVE) mg/dL Urine Ketones >=80 (NEGATIVE) mg/dL Urine Occult Blood NEGATIVE (NEGATIVE) Urine Nitrite NEGATIVE (NEGATIVE) Urine Bilirubin NEGATIVE (NEGATIVE) Urine Urobilinogen 0.2 (<2.0) EU/dL Ur Leukocyte Esterase NEGATIVE (NEGATIVE) Urine RBC 0-1 (0-2/HPF) Urine WBC 0-1 (0-5/HPF) Ur Epithelial Cells RARE (NONE-FEW) Urine Bacteria RARE (NEGATIVE) Urine HCG, Qual NEGATIVE (NEGATIVE) Ethyl Alcohol mg/dL Meds: Medications Discontinued Medications Generic Name Dose Route Start Last Admin Trade Name Freq PRN Reason Stop Dose Admin Multivitamins/Minerals 10 ml/ 1,011.2 mls @ 999 mls/hr 04/21/20 11:32 04/21/20 12:16 Thiamine HCl 100 mg/ Folic IV 04/21/20 12:32 999 mls/hr Acid 1 mg/ Sodium Chloride ONETIME ONE Administration Lorazepam 1 mg 04/21/20 11:32 04/21/20 11:46 Ativan IVPUSH 04/21/20 11:33 1 mg ONETIME ONE Administration Departure - Departure Time of Disposition: 13:28 Disposition: Home, Self-Care 01 Clinical Impression: Leukocytosis Qualifiers: Leukocytosis type: unspecified Qualified Code(s): D72.829 - Elevated white blood cell count, unspecified Nausea and vomiting Qualifiers: Vomiting type: unspecified Vomiting Intractability: non-intractable Qualified Code(s): R11.2 - Nausea with vomiting, unspecified - Discharge Information Instructions: Nausea and Vomiting, Adult, [id number] Referrals: Arden Grullon MD [Primary Care Provider] - Additional Instructions: The following information is given to patients seen in the emergency department who are being discharged to home. This information is to outline your options for follow-up care. We provide all patients seen in our emergency department with a follow-up referral. The need for follow-up, as well as the timing and circumstances, are variable depending upon the specifics of your emergency department visit. If you don't have a primary care physician on staff, we will provide you with a referral. We always advise you to contact your personal physician following an emergency department visit to inform them of the circumstance of the visit and for follow-up with them and/or the need for any referrals to a consulting specialist. The emergency department will also refer you to a specialist when appropriate. This referral assures that you have the opportunity for follow-up care with a specialist. All of these measure are taken in an effort to provide you with optimal care, which includes your follow-up. Under all circumstances we always encourage you to contact your private physician who remains a resource for coordinating your care. When calling for follow-up care, please make the office aware that this follow-up is from your recent emergency room visit. If for any reason you are refused follow-up, please contact the [facility] Emergency Department at and asked to speak to the emergency department charge nurse. [facility] Primary [facility] [address] [place] [id number] [address] Thank you for choosing the [facility] emergency department in [place] for your medical needs today. It was a pleasure caring for you. You were seen in the emergency department for nausea and vomiting. 1. Your lab work was within normal limits with the exception of a slightly elevated white count (WBC). You currently do not have any source of infection, so this is likely from you wrenching/vomiting. If you should develop a fever, cough, abdominal pain, etc... you should be re-evaluated. 2. Encourage small frequent sips of fluids to prevent dehydration. Pender diet over the next 24-48 hours, advance as tolerated. 3. Tylenol and/or Ibuprofen as needed for pain and fever management. 4. Follow up with your primary care provider or the general surgeon as we discussed. Sepsis Event Note (ED) - Focused Exam Vital Signs: Vital Signs Temp Pulse Resp BP Pulse Ox 04/21/20 12:21 80 15 116/76 98 04/21/20 11:52 98.4 F 108 H 17 128/82 100
[2020-04-21] MEDS ORDERED: LORazepam 2 MG/ML SDV IVPUSH ONE (11:32)
[2020-04-21] MEDS ORDERED: MVI, Adult with Vitamin K 10 ML, Thiamine 100 MG, Folic Acid 1 MG in Sodium Chloride 0.... IV ONE ×4 (11:32)
[2020-04-21 12:06] LABS: BLOOD UREA NITROGEN,BUN 15 mg/dL (7.0-18.0); CARBON DIOXIDE,CO2 19.1 mmol/L (21.0-32.0); CHLORIDE,CL 100 mmol/L (98-107); GLUCOSE RANDOM 87 mg/dL (74-106); LIPASE 41 U/L (73-393); POTASSIUM,K 3.4 mmol/L (3.5-5.1); SODIUM,NA 140 mmol/L (136-145)
[2020-04-21 13:30] VITALS: BP 129/69; PULSE 95
== END 2020-04-21 13:35 | disposition home or self-care (01) ==
LOC: MW.ED 11:19
DX: R11.2 Nausea with vomiting, unspecified (principal); D72.829 Elevated white blood cell count, unspecified; Z88.0 Allergy status to penicillin
CPT/HCPCS: 36415; 80053; 80307; 81001; 81025; 83690; 85025; 96365; 96375; 99284; J2060; J3411; J7030

== ENCOUNTER 2021-08-23 18:44 | Emergency (ER) | payer SELFPAY ==
[2021-08-23 19:05] VITALS: BP 139/90; PULSE 70
--- NOTE | 2021-08-23 19:06 | EDM.PDOC ---
ED HPI GENERAL MEDICAL PROBLEM - General Chief Complaint: General Stated Complaint: MEDICAL CLEARANCE Time Seen by Provider: 08/23/21 18:53 Source of Information: Reports: Patient History Limitations: Reports: No Limitations - History of Present Illness INITIAL COMMENTS - FREE TEXT/NARRATIVE: Patient is a 31-year-old female brought in today for medical clearance. Patient seems to be intoxicated on exam but able to talk and answer questions she denies any complaints at the moment. She is angry and argument the animal services officer she does not want to go to retirement who explained the patient do not have any control that we have made sure she is okay medically she denies any headache fever chills nausea vomiting vital signs reviewed patient will be placed in the police custody. - Related Data Allergies Allergy/AdvReac Type Severity Reaction Status Date / Time Penicillins Allergy Anaphylactic Verified 08/23/21 18:46 Shock Home Meds: Home Meds . 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 SERVICES PLANNER History: Reports: Musculoskeletal History: Reports: Fracture Other Musculoskeletal History: hx of bilateral fx ankles Neurological History: Reports: Concussion Psychiatric History: Reports: Anxiety, Depression, PTSD Endocrine/Metabolic History: Reports: None Hematologic History: Reports: None Immunologic History: Reports: None Oncologic (Cancer) History: Reports: None Dermatologic History: Reports: None - Infectious Disease History Infectious Disease History: Reports: Chicken Pox, MRSA - Past Surgical History HEENT Surgical History: Reports: Naso-Sinus Surgery, Tonsillectomy Other HEENT Surgeries/Procedures: hx of Rhinoplasty GI Surgical History: Reports: Appendectomy, Other (See Below) Other GI Surgeries/Procedures: hx of Liposuction Social & Family History - Family History Family Medical History: No Pertinent Family History - Caffeine Use Caffeine Use: Reports: Coffee Other Caffeine Use: 1 cup daily ED ROS GENERAL - Review of Systems Review Of Systems: See Below Constitutional: Reports: No Symptoms HEENT: Reports: No Symptoms Respiratory: Reports: No Symptoms Cardiovascular: Reports: No Symptoms Endocrine: Reports: No Symptoms GI/Abdominal: Reports: No Symptoms : Reports: No Symptoms Musculoskeletal: Reports: No Symptoms Skin: Reports: No Symptoms Neurological: Reports: No Symptoms Psychiatric: Reports: No Symptoms Hematologic/Lymphatic: Reports: No Symptoms Immunologic: Reports: No Symptoms ED EXAM, GENERAL - Physical Exam Exam: See Below Exam Limited By: Intoxication General Appearance: Alert, WD/WN, No Apparent Distress Eye Exam: Bilateral Eye: EOMI, PERRL Nose: Normal Inspection Throat/Mouth: Normal Inspection Head: Atraumatic Neck: Normal Inspection Respiratory/Chest: No Respiratory Distress, Lungs Clear, Normal Breath Sounds Cardiovascular: Normal Peripheral Pulses, Regular Rate, Rhythm GI/Abdominal: Normal Bowel Sounds, Soft, Non-Tender Extremities: Normal Inspection Neurological: Alert, Oriented Departure - Departure Time of Disposition: 19:06 Disposition: Home, Self-Care 01 Condition: Good Clinical Impression: Medical clearance for incarceration - Discharge Information Referrals: PCP,None [Primary Care Provider] - - Assessment/Plan Plan: Patient is a 31-year-old female brought in today for medical clearance. Patient denies any complaints vital signs reviewed patient will be discharged in police custody.
== END 2021-08-23 19:33 ==
LOC: MW.ED 18:44
DX: Z02.89 Encounter for other administrative examinations (principal); Z88.0 Allergy status to penicillin
CPT/HCPCS: 99283